=== PATIENT | male | born 1940 | race Caucasian/White ===

== ENCOUNTER 2023-08-30 09:02 | Outpatient (AMB) | payer MEDICARE, SELFPAY ==
--- NOTE | 2023-08-30 09:41 | MHC.OFFWIV ---
Intake Vital Signs 08/30/23 09:42 Height 5 ft 3 in Weight 142 lb 2 oz BMI 25.2 BP 130/60 Blood Pressure Location Lt brachial Position Sitting Pulse 59 Pulse Source Pulse Oximeter Temp 97.9 F Temp Source Temporal Artery Scan Pulse Oximetry (%) 96 Intake Visit Reasons: [employer]/ back pain (lobby) Intake Note: pt is here for c.o back pain due to fall on ice since sunday Patient Tobacco Use Status: Never used Tobacco Allergies No Known Allergies Allergy (Verified 08/30/23 09:45) Do you need a note to return to daycare/school/sports/work: No HPI [employer]/ back pain (lobby) HPI Details This is an 83-year-old male patient who presents today with his daughter due to a recent fall. He states that he was walking down his outside steps this past Sunday, and slipped on ice, causing him to fall and land on the right side of his ribs. He did not hit his head. No loss of consciousness. He has been able to walk, however bending and lying down have been painful. Has been using ice and heat applications, in addition to topical icy/hot, and Tylenol. Denies any leg weakness or numbness. Denies any shortness of breath. [facility] Social History Patient Tobacco Use Status: Never used Tobacco Review of Systems Const All systems reviewed & are unremarkable except as noted in HPI and below Physical Exam Vital Signs: Last Vital Signs Temp 97.9 F 08/30/23 09:42 Pulse 59 08/30/23 09:42 BP 130/60 08/30/23 09:42 Pulse Ox 96 08/30/23 09:42 BMI result Body Mass Index 25.2 Const General: cooperative and no acute distress Orientation/consciousness: patient oriented x3 HEENT Head: Yes normal to inspection Resp Effort & Inspection: normal respiratory effort and able to speak in complete sentences Auscultation: clear to auscultation bilaterally Cardio Jugular venous distension: no JVD Palpation: normal PMI Rate: regular rate Rhythm: regular rhythm Back/Spine/Pelvis Other: Tenderness to palpation right lower ribs both posteriorly and laterally. Mild pain with deep inspiration. Small erythematous area right lower back, which patient states was the primary site of impact with fall. Skin General skin exam: no rashes or lesions noted Neuro General: patient oriented x3, gait normal, Normal light touch and pain sensation and deep tendon reflexes 2+ bilaterally Extrem General: Yes capillary refill normal and Yes no clubbing, cyanosis or edema Psych Appearance: grossly normal Mental Status: mental status grossly normal Speech and movement: Normal speech and movement present Assessment & Plan Assessment & Plan (1) Fall (on) (from) other stairs and steps, initial encounter: Code(s): W10.8XXA - Fall (on) (from) other stairs and steps, initial encounter Plan: Patient on Eliquis for a-fib, so cannot take NSAIDs. Advised continued use of ice and heat applications, topical icy-hot, and Tylenol every 6 hours as needed for pain. I am also going to prescribe him a short course of muscle relaxers to take at HS as this is when his pain is the worst. We reviewed indications, use, possible side effects. Should patient not improve with time and conservative measures, or if pain worsens or new symptoms such as shortness of breath occur, he should return to the clinic or the ED for evaluation. Daughter Porsha is present at visit and she and patient both verbalize understanding and agree to plan. Patient consents to daughter being called with results due to language barrier - XR of right side of ribs/chest obtained in the office today reveals -- Mildly displaced fracture of the right 10th anterolateral rib, possible nondisplaced fracture of the right posterior ninth rib, cardiomegaly, and blunting of the costophrenic angles consistent with pleural thickening and/or small pleural effusions. Will contact patient/daughter with results. (2) Rib pain on right side: Code(s): R07.81 - Pleurodynia Plan: As above. Orders: Orders XR ribs RT min 3V w CXR1V Today R07.81 - Pleurodynia, W10.8XXA - Fall (on) (from) other stairs and steps, initial encounter Medications: New cyclobenzaprine Take at bedtime as needed for muscle pain/spasms. 10 mg PO TID PRN 7 tabs 0RF muscle spasm 7 days R07.81 - Pleurodynia, W10.8XXA - Fall (on) (from) other stairs and steps, initial encounter Coding Level of Care Code Est Pt Level 3 (15677) Diagnoses Fall (on) (from) other stairs and steps, initial encounter W10.8XXA Rib pain on right side R07.81
[2023-08-30 09:42] VITALS: BP 130/60; PULSE 59; TEMP 36.6; O2SAT 96; BMI 25.2
== END 2023-08-30 10:31 | disposition home or self-care (01) ==
PROVIDERS: Visit Provider Nurse Practitioner Family
DX: R07.81 Pleurodynia (principal); W10.8XXA Fall (on) (from) other stairs and steps, initial encounter
CPT/HCPCS: 99213

== ENCOUNTER 2023-08-30 10:06 | Outpatient (REF) | payer MEDICARE, SELFPAY ==
--- NOTE | ~2023-08-30 | XR_ITS ---
EXAMINATION: XR RIBS, RIGHT CLINICAL INFORMATION: Fall (on) ((from) other stairs and steps, initial encounter Fall on lower right side of the neck and right ribs COMPARISON: None available. TECHNIQUE: 3 views of the right ribs were obtained. FINDINGS: Lungs are clear. No consolidation or pneumothorax. There is slight blunting of the costophrenic angles consistent with pleural thickening and/or small pleural effusions. The cardiac silhouette is markedly enlarged. Pulmonary vasculature is normal. A radiopaque skin markers placed near the right anterior 10th rib corresponding to the area of pain indicated by the patient. Comparison There is a mildly displaced fracture of the right 10th anterolateral rib.. Possible nondisplaced fracture of the right posterior ninth rib. There is mild compression of the T12 and T11 vertebral bodies, of unknown chronicity. XR/XR ribs RT min 3V w CXR1V IMPRESSION: 1. Mildly displaced fracture of the right 10th anterolateral rib. 2. Possible nondisplaced fracture of the right posterior ninth rib. 3. Cardiomegaly. 4. Blunting of the costophrenic angles consistent with pleural thickening and/or small pleural effusions.
== END 2023-08-30 10:07 | disposition home or self-care (01) ==
LOC: HO.HMGCX 10:06
PROVIDERS: PCP Physician Assistant Medical; Visit Provider Nurse Practitioner Family
DX: R07.81 Pleurodynia (principal); W10.8XXA Fall (on) (from) other stairs and steps, initial encounter
CPT/HCPCS: 71101